=== PATIENT | female | born 1995 | race Caucasian/White ===

== ENCOUNTER 2016-11-21 12:14 | Emergency (ER) | payer SELFPAY ==
[~2016-11-21] VITALS: Ht 165.1 cm; Wt 61.7 kg
[2016-11-21 12:25] VITALS: BP 99/65; PULSE 63; RESP 16; TEMP 98; O2SAT 100
--- NOTE | 2016-11-21 13:14 | PD ---
HPI Chief Complaint: Skin Problem Time Seen by Provider: 13:11 Travel History International Travel<30 days: Yes Contact w/Intl Traveler<30days: Yes Name of Country Traveled to: [place] Traveled to known affect area: No History of Present Illness HPI 21-year-old female presents to the emergency room for evaluation of multiple complaints. She is concerned about flesh-colored maculopapular lesions on the left thigh which showed up 2 days ago, pain in her right axillary region, and a bug bite to her left knee. She is also requesting routine bloodwork for checkup. She denies fever, chills, nausea, and vomiting. Denies drainage. She has not taken anything for symptoms. Patient is concerned she has infection. [facility] Past Medical History Medical History: Denies Significant Hx Tetanus Vaccination: < 5 Years Influenza Vaccination: No ?: Unknown LMP: week ago Past Surgical History Surgical History: No Previous Surgery Social History Alcohol Use: Yes (rare) Tobacco Use: No Substance Use: No Allergies-Medications (Allergen,Severity, Reaction): Coded Allergies: No Known Allergies (Unverified , 11/21/16) Review of Systems Except as stated in HPI: all other systems reviewed are Neg Physical Exam Narrative GENERAL: Well-nourished, well-developed female in no acute distress. Afebrile. Ambulatory. SKIN: Flesh colored maculopapular lesions in the left anterior thigh. No erythema. There is a small insect bite to the left lateral knee that is pruritic with palpation. No evidence of abscess or fluctuance. Right axillary lesion is mildly tender to palpation without evidence of abscess or lymphadenopathy. HEAD: Normocephalic. EYES: No scleral icterus. No injection or drainage. NECK: Supple, trachea midline. No JVD or lymphadenopathy. CARDIOVASCULAR: Regular rate and rhythm without murmurs, gallops, or rubs. RESPIRATORY: Breath sounds equal bilaterally. No accessory muscle use. PSYCHIATRIC: No delusional thought processes. No hallucinations. Data Data Last Documented VS Vital Signs Date Time Temp Pulse Resp B/P Pulse Ox O2 Delivery O2 Flow Rate FiO2 11/21/16 12:25 98.0 63 16 99/65 100 MDM Medical Decision Making Medical Screen Exam Complete: Yes Emergency Medical Condition: Yes Medical Record Reviewed: Yes Differential Diagnosis Molluscum contagiosum versus abscess versus lymphadenopathy Narrative Course 21-year-old female presents to the emergency room for evaluation of several complaints. Physical exam reveals molluscum contagiosum on the left anterior thigh. Patient was informed this is a viral skin infection and will go away on its own. No concern for bacterial infection. She is also concerned about possible abscesses to her right axilla and left knee. There is no evidence of an abscess in either location. Left knee is likely bug bite as it is itchy. Right axilla is nontender without erythema, induration, or fluctuance. She is also requesting routine blood work/checkup. Patient was referred to the [facility] for follow-up and routine care. She understands and agrees to plan. Diagnosis Primary Impression: Molluscum contagiosum Referrals: [facility] Patient Instructions: General Instructions, Molluscum Contagiosum (ED) Additional Instructions: Rest and drink plenty of fluids. Warm compresses to red area. Follow-up with a primary care physician. Return to the emergency room for worsening symptoms. Disposition: 01 DISCHARGE HOME Condition: Stable Brigida Parikh November 21, 2016 13:14
== END 2016-11-21 13:29 | disposition home or self-care (01) ==
LOC: PHEFT 12:14
DX: B08.1 Molluscum contagiosum (principal)
CPT/HCPCS: 99282

== ENCOUNTER 2016-12-25 22:58 | Emergency (ER) | payer OTHER ==
[2016-12-25 23:01] VITALS: BP 113/68; PULSE 88; RESP 16; TEMP 98.9; O2SAT 98
[2016-12-26 01:07] LABS: BLOOD, URINE NEG (NEG); CALCIUM OXALATE CRYSTALS,URINE MOD /hpf; COMMENT (UR) CULT NOT INDICATED; CULTURE IF INDICATED CULT NOT INDICATED; GLUCOSE,URINE NEG (NEG); KETONE, URINE NEG (NEG); MUCUS URINE MANY /lpf (OCC); NITRITE,URINE NEG (NEG); SQUAMOUS EPITHELIAL CELL URINE 11 /hpf (0-5); URINE COLOR YELLOW (YELLW/STRAW)
[2016-12-26 01:56] VITALS: BP 114/59; PULSE 71; RESP 18; TEMP 97.5; O2SAT 97
--- NOTE | 2016-12-26 02:07 | PD ---
HPI Chief Complaint: Abdominal Pain Time Seen by Provider: 01:54 Travel History International Travel<30 days: No Contact w/Intl Traveler<30days: No Traveled to known affect area: No History of Present Illness HPI 21-year-old at 6 weeks presents with left lower quadrant abdominal pain and general ill feeling. She states she hasn't seen her framework developer yet [facility]. She states no other specific complaints. Quality is crampy. Severity is moderate. She denies any associated symptoms including bleeding. Duration is couple of days. Her last menstrual cycle was November 13. She states with her prior everything went fine and she has a 4-year- old. [facility] Past Medical History Medical History: Denies Significant Hx Diminished Hearing: No ?: LMP: 11/13/16 Past Surgical History Surgical History: No Previous Surgery Social History Alcohol Use: Yes (rare) Tobacco Use: No Substance Use: No Allergies-Medications (Allergen,Severity, Reaction): Coded Allergies: No Known Allergies (Unverified , 12/26/16) Reported Meds & Prescriptions Reported Meds & Active Scripts Active No Active Prescriptions or Reported Medications Review of Systems Except as stated in HPI: all other systems reviewed are Neg Physical Exam Narrative GENERAL: Well-nourished, well-developed patient. Well-appearing SKIN: Warm and dry. HEAD: Normocephalic and atraumatic. EYES: No injection or drainage. ENT: No nasal drainage noted. NECK: Supple, trachea midline. CARDIOVASCULAR: Regular rate and rhythm RESPIRATORY: No increased effort. No accessory muscle use. GASTROINTESTINAL: Abdomen soft, mild tenderness left lower quadrant, nondistended. NEUROLOGICAL: Awake and alert. Motor and sensory grossly within normal limits. Normal speech. Data Data Last Documented VS Vital Signs Date Time Temp Pulse Resp B/P Pulse Ox O2 Delivery O2 Flow Rate FiO2 12/26/16 01:56 97.5 71 18 114/59 97 Room Air Orders Urinalysis - C+S If Indicated (12/26/16 00:21) Ed Urine Pregnancytest Poc (12/26/16 00:21) Beta Hcg (Quant/Titer) (12/26/16 02:01) Complete Blood Count With Diff (12/26/16 02:01) Basic Metabolic Panel (Bmp) (12/26/16 02:01) Complete Rh (12/26/16 02:01) Us Pelvis (Ques Pr/Ect)W Trans (12/26/16 ) Iv Access Insert/Monitor (12/26/16 02:01) Labs Laboratory Tests Test 12/26/16 12/26/16 00:25 02:20 Urine Color YELLOW Urine Turbidity HAZY Urine pH 6.0 Urine Specific [place] 1.036 Urine Protein 30 mg/dL Urine Glucose (UA) NEG mg/dL Urine Ketones NEG mg/dL Urine Occult Blood NEG Urine Nitrite NEG Urine Bilirubin NEG Urine Urobilinogen 2.0 MG/DL Urine Leukocyte Esterase TRACE Urine RBC 1 /hpf Urine WBC 4 /hpf Urine Squamous Epithelial 11 /hpf Cells Urine Calcium Oxalate Crystals MOD /hpf Urine Mucus MANY /lpf Microscopic Urinalysis Comment CULT NOT INDICATED White Blood Count 7.6 TH/MM3 Red Blood Count 4.13 MIL/MM3 Hemoglobin 12.5 GM/DL Hematocrit 36.7 % Mean Corpuscular Volume 88.8 FL Mean Corpuscular Hemoglobin 30.2 PG Mean Corpuscular Hemoglobin 34.0 % Concent Red Cell Distribution Width 12.3 % Platelet Count 145 TH/MM3 Mean Platelet Volume 9.6 FL Neutrophils (%) (Auto) 54.1 % Lymphocytes (%) (Auto) 34.6 % Monocytes (%) (Auto) 6.8 % Eosinophils (%) (Auto) 3.9 % Basophils (%) (Auto) 0.6 % Neutrophils # (Auto) 4.1 TH/MM3 Lymphocytes # (Auto) 2.6 TH/MM3 Monocytes # (Auto) 0.5 TH/MM3 Eosinophils # (Auto) 0.3 TH/MM3 Basophils # (Auto) 0.0 TH/MM3 CBC Comment DIFF FINAL Differential Comment Sodium Level 140 MEQ/L Potassium Level 3.6 MEQ/L Chloride Level 106 MEQ/L Carbon Dioxide Level 27.4 MEQ/L Anion Gap 7 MEQ/L Blood Urea Nitrogen 12 MG/DL Creatinine 0.79 MG/DL Estimat Glomerular Filtration 91 ML/MIN Rate Random Glucose 90 MG/DL Calcium Level 9.3 MG/DL Human Chorionic Gonadotropin, 7056 MIU/ML Quant Blood Type A NEGATIVE Rho(D) Type NEGATIVE MDM Medical Decision Making Medical Screen Exam Complete: Yes Emergency Medical Condition: Yes Medical Record Reviewed: Yes (past history confirmed) Interpretation(s) Urine shows mucus without signs of infection Beta is positive Ultrasound shows IUP about 4-5 weeks with small yolk sac and possible pole , questionable small subchorionic hemorrhage, small fluid-patient given copy Differential Diagnosis Ectopic, cyst, UTI, stone, Narrative Course [id number] test is positive. We'll check quant and ultrasound and reevaluate Patient denies any new complaints and states that they are feeling better. Patient happy with care, all questions answered. Patient knows that follow up is incumbent on them and to return to the emergency room immediately if new or worsening symptoms develop. Patient given strict return precautions, vitals reviewed and are normal, agrees to further workup as an outpatient. Diagnosis Primary Impression: Abdominal pain during Qualified Code: O26.891 - Abdominal pain during , first trimester Patient Instructions: General Instructions Additional Instructions: Return as needed, set up an framework developer, Tylenol as needed Med/Other Pt SpecificInfo: No Change to Meds Scripts No Active Prescriptions or Reported Meds Disposition: 01 DISCHARGE HOME Condition: Stable Brittany Larry MD Dec 26, 2016 02:07
[2016-12-26 02:35] LABS: AUTOMATED NEUTROPHIL # 4.1 TH/MM3 (1.8-7.7); BASOPHIL % 0.6 % (0.0-2.0); EOSINOPHIL # 0.3 TH/MM3 (0-0.4); EOSINOPHIL % 3.9 % (0.0-4.0); HEMATOCRIT 36.7 % (35.0-46.0); HEMO FLAGS DIFF FINAL; LYMPH % 34.6 % (9.0-44.0); LYMPHOCYTE # 2.6 TH/MM3 (1.0-4.8); MEAN CELL VOLUME 88.8 FL (80.0-100.0); MEAN CORPUSCULAR HEMOGLOBIN 30.2 PG (27.0-34.0); MONO % 6.8 % (0.0-8.0); NEUT % 54.1 % (16.0-70.0); PLATELET COUNT 145 TH/MM3 (150-450); RED BLOOD COUNT 4.13 MIL/MM3 (4.00-5.30); RED CELL DISTRIBUTION WIDTH 12.3 % (11.6-17.2); WHITE BLOOD COUNT 7.6 TH/MM3 (4.0-11.0)
[2016-12-26 02:56] LABS: BICARBONATE 27.4 MEQ/L (21.0-32.0); POTASSIUM 3.6 MEQ/L (3.5-5.1)
--- NOTE | 2016-12-26 03:48 | RADRPT ---
EXAM DATE/TIME: 12/26/2016 03:09 [place] COMPARISON: No previous studies available for comparison. INDICATIONS : Pelvic pain. LAB(S): Beta-hC,056 MEDICAL HISTORY : . Hernia, umbilical. SURGICAL HISTORY : None. ENCOUNTER: Initial ACUITY: 3 days PAIN SCORE: 7/10 LOCATION: Bilateral pelvis MEASUREMENTS: UTERUS: 9.9 x 5.8 x 5.5 cm ENDOMETRIAL STRIPE: 14 mm RIGHT OVARY: 2.5 x 2.8 x 2.3 cm LEFT OVARY: 3.6 x 2.5 x 2.3 cm FREE FLUID: Yes posterior cul de sac CROWN RUMP LENGTH: 0.2 cm = OOR WKS DAYS FHR: Nonvisualized BPM FINDINGS: UTERUS: There is a small intrauterine with gestational sac and questionable small pole which is too early for dating. A small yolk sac is apparently visualized. There is a small hypoechoic area along the endometrial canal in the right lower uterine segment measuring 7 x 3 x 5 mm. There are smal l nabothian cysts. RIGHT OVARY: Ovary contains no mass or significant cystic lesion. LEFT OVARY: Ovary contains no mass or significant cystic lesion. MISCELLANEOUS: There is a small amount of free fluid in the cul-de-sac. CONCLUSION: 1. Early intrauterine too early for dating. This is in the 4-5 weeks menstrual age range. 2. Small yolk sac and questionable pole. 3. Questionable small subchorionic hemorrhage. 4. Small amount of free fluid in the cul-de-sac. Froylan Rodrigues MD on December 26, 2016 at 3:45 Board Certified Radiologist. This report was verified electronically.
== END 2016-12-26 04:42 | disposition home or self-care (01) ==
LOC: NEPC 22:58
DX: O26.91 Pregnancy related conditions, unspecified, first trimester (principal); R10.32 Left lower quadrant pain; Z3A.01 Less than 8 weeks gestation of pregnancy
CPT/HCPCS: 76700; 76817; 80048; 81001; 84702; 84703; 85025; 86901; 99284